=== PATIENT | female | born 2000 | race Caucasian/White ===

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

== ENCOUNTER → 2021-07-27 | Outpatient (CLI) | payer OTHER | END | disposition home or self-care (01) | LOC: COVID19 16:27 | PROVIDERS: ATTEND Internal Medicine | DX: Z20.822 Contact with and (suspected) exposure to COVID-19 (principal) ==

== ENCOUNTER 2021-12-30 09:10 | Emergency (ER) | payer OTHER ==
[2021-12-30 09:20] VITALS: BP 133/87
== END 2021-12-30 10:36 | disposition home or self-care (01) ==
LOC: ED 09:10
DX: J02.9 Acute pharyngitis, unspecified (principal)

== ENCOUNTER → 2022-06-27 | Outpatient (CLI) | payer OTHER | END | disposition home or self-care (01) | LOC: RAD 15:37 | PROVIDERS: ATTEND Nurse Practitioner Family | DX: S99.912A Unspecified injury of left ankle, initial encounter (principal); X58.XXXA Exposure to other specified factors, initial encounter; Y93.89 Activity, other specified; Y92.89 Other specified places as the place of occurrence of the external cause; Y99.8 Other external cause status ==

== ENCOUNTER 2023-01-25 10:27 | Emergency (ER) | payer OTHER ==
[~2023-01-25] VITALS: Ht 157.4 cm; Wt 95.3 kg
[2023-01-25 10:38] VITALS: BP 123/83
[2023-01-25] MEDS ORDERED: AMOXICILLIN875 MG PO (11:27)
== END 2023-01-25 11:06 | disposition home or self-care (01) ==
LOC: ED 10:27
DX: K08.89 Other specified disorders of teeth and supporting structures (principal)

== ENCOUNTER → 2024-03-05 | Outpatient (CLI) | payer OTHER ==
[~2024-03-05] MED LIST changes: +AMOXICILLIN875 MG PO
== END | disposition home or self-care (01) ==
LOC: RAD 07:25
PROVIDERS: ATTEND Nurse Practitioner Family
DX: R76.12 Nonspecific reaction to cell mediated immunity measurement of gamma interferon antigen response without active tuberculosis (principal)